=== PATIENT | female | born 1985 | race Caucasian/White ===

== ENCOUNTER 2021-06-28 15:26 | Inpatient (IN) | payer OTHER ==
[~2021-06-28] VITALS: Ht 160 cm; Wt 52.3 kg
[~2021-06-28 15:26] MED LIST: AUGMENTIN 875 M1 TAB PO; BCP TD; CIPRO HC OTIC S10 ML OT; GUAIFEN-PSE 6001 TER PO; IBUPROFEN400 MG PO; LORTAB 5/500 501 TAB PO
[2021-07-18] VITALS (12 sets, daily range): BP systolic 86–127; BP diastolic 51–93; PULSE 66–89; TEMP 97.4–98.8
[2021-07-18] MEDS ORDERED: ONE-A-DAY ESSE1 EACH PO (05:53)
[2021-07-18 06:52] LABS: BASO # 0.1 K/mm3 (0.0-0.2); BASO % 0.7 % (0.0-2.0); EOS # 0.2 K/mm3 (0.0-0.7); EOS % 1.8 % (0-4.0); GRAN # 5.4 K/mm3 (1.4-6.5); GRAN % 65.3 % (42.2-75.2); HEMATOCRIT 42.3 % (37.0-47.0); HEMOGLOBIN 13.4 g/dl (12.5-16.0); LYMPH # 2.1 K/mm3 (1.2-3.4); LYMPH % 25.2 % (20.0-51.0); MEAN CELL VOLUME 95 fl (80.0-100.0); MEAN CORPUSCULAR HEMOGLOBIN 30 pg (27.0-31.0); MEAN CORPUSCULAR HGB CONC 32 g/dl (33.0-37.0); MEAN PLATELET VOLUME 11.3 fl (7.4-10.4); MONO # 0.6 K/mm3 (0.1-0.6); MONO % 6.8 % (1.7-9.3); PLATELET COUNT 209 K/mm3 (130-400); RED BLOOD COUNT 4.46 M/mm3 (4.10-5.30); REDCELL DISTRIBUTION WIDTH-CV 13.6 % (11.5-14.5)
--- NOTE | 2021-07-18 07:00 | NUR ---
PATIENT'S BELONGINGS BROUGHT INTO PACU. REPORT GIVEN TO CARLOS ALBERTO HILL FOR OR.
[2021-07-18 07:17] LABS: ALBUMIN 3.8 gm/dL (3.5-5.0); BILIRUBIN,TOTAL 0.3 mg/dL (0.2-1.2); CALCIUM 9.2 mg/dL (8.4-10.2); CREATININE, serum 0.71 mg/dL (0.57-1.11); POTASSIUM 3.5 mmol/L (3.5-4.5)
--- NOTE | 2021-07-18 11:20 | NUR ---
PATIENT IS ORIENTED BUT DROWSY POST OP. VSS. NO C/O PAIN OR NAUSEA UPON ADMISSION. ABD LAP SITES X6 ARE WELL APPROXIMATED WITH GLUED CLOSURE. ABD IS SLIGHTLY DISTENDED POST OP BUT WITH POSITIVE BOWL SOUNDS. DOBBS TO DD WITH SMALL AMOUNTS OF CLEAR YELLOW URINE NOTED. IV FLUIDS INFUSING INTO LEFT HAND AND RIGHT WRISTS IV'S. HEAD TO TOE ASSESSMENT COMPLETE. ORIENTED TO ROOM. NO VISITOR. CALL LIGHT IN REACH. NO OTHER NEEDS AT THIS TIME. PATIENT RESTING WITH LIGHTS TURNED DOWN.
--- NOTE | 2021-07-18 20:00 | NUR ---
PATIENT IS ALERT AND ORIENTED X4. PATIENT HAS 6 LAP SITES TO ABDOMEN. CDI, OPEN TO AIR. PATIENT IS ON GENERAL DIET AND ERAS PROTOCOL. PATEINT HAS DOBBS WITH CLEAR AND YELLOW OUTPUT. PATIENT GIVEN K PAD TO HELP WITH PAIN. PATIENT DENIES FURTHER NEEDS AT THIS TIME. PATIENT HAS IV TO LEFT FOREARM AND RIGHT AC. CALL LIGHT WITHIN REACH. HEAD TO TOE ASSESSMENT COMPLETE.
--- NOTE | 2021-07-18 22:15 | NUR ---
PATIENT RATING PAIN 8/10. PAIN MEDS GIVEN PER ORDERS. PATIENT STATES THAT KPAD IS NOT HELPING ENOUGH. BLOOD PRESSURE TO BE MONITORED CLOSELY.
[2021-07-19] VITALS (9 sets, daily range): BP systolic 74–94; BP diastolic 49–61; PULSE 67–82; TEMP 98.2–99.5
--- NOTE | 2021-07-19 05:38 | NUR ---
PATIENT HAD BLOOD PRESSURE OF 74/49. DR. HAYES LEFT VOICEMAIL TO NOTIFY. PATIENT STATES SHE NORMALLY HAS LOW BLOOD PRESSURE. FLUIDS GOING AT 125. PATIENT HAS GOOD OUTPUT FROM DOBBS. WILL CONTINUE TO MONITOR.
--- NOTE | 2021-07-19 05:45 | NUR ---
DR HAYES CALLED AGAIN AND IT WENT TO VOICEMAIL. DR JIMENEZ CALLED AND ORDERED A 500CC BOLUS OF NORMAL SALINE.
--- NOTE | 2021-07-19 06:17 | NUR ---
PATIENT SLEPT MOST OF NIGHT. LOW BLOOD PRESSURES, NOTIFIED DOCTOR. WILL REPORT TO DAYSHIFT.
[2021-07-19 07:10] LABS: HEMATOCRIT 35.7 % (37.0-47.0); HEMOGLOBIN 11.2 g/dl (12.5-16.0)
[2021-07-19 07:29] LABS: CALCIUM 8.7 mg/dL (8.4-10.2); CREATININE, serum 0.7 mg/dL (0.57-1.11); POTASSIUM 3.8 mmol/L (3.5-4.5)
--- NOTE | 2021-07-19 08:17 | NUR ---
Pt resting in bed upon entering for assessment. Dr Powers has been in to see patient. New orders wrote. Pt rating pain 04/18, reports it as sore. PRN pain medication given. Bolus infusing at this time as well. Discussed with pt about plan for the day. Discussed getting up in to the chair and having salgado catheter removed. Breakfast arrived, pt denies any other needs.
--- NOTE | 2021-07-19 09:30 | NUR ---
Abdul catheter removed per order. Pt was not thrilled about having to get up in to the chair. Once she was up, she did well. She did ambulate from the far side of the bed to the bathroom and then back to the chair. Once she was sitting up, she stated that she felt better. Pt did tolerate breakfast, although she did not eat much. No needs, call light within reach
--- NOTE | 2021-07-19 09:53 | NUR ---
ANA MARIA met with the patient to discuss discharge plan. The patient lives in [place] with her two children. She states that her children are with family while she is here. She reports independence with ADLs and does not have any DME. The patient does not have a PCP at this time. She states that she would be interested in getting a list of [place] Providers. ANA MARIA provided her with that list. The patient receives her medications from [facility] and she reports no difficulties obtaining her meds. The patient does not have a DPOA-HC, but she was interested in obtaining a form. ANA MARIA provided. The patient is and she states that her , Adelfo (ph#[phone]), lives out of state right now. The patient plans to return home with her children upon discharge. No additional needs at this time.
--- NOTE | 2021-07-19 13:43 | NUR ---
Initial visit; Patient thanked [employer]per for offering God's blessings and keeping her in [employer]'s prayers.
--- NOTE | 2021-07-19 14:30 | NUR ---
Pt tolerating general diet with no complaints of nausea. Pt back resting in bed. She did have an increase in pain, PRN was given. Pt now resting with eyes closed, even non labored breathing. Call light within reach
[2021-07-19 16:25] LABS: HEMATOCRIT 34.9 % (37.0-47.0)
--- NOTE | 2021-07-19 17:58 | NUR ---
Pt was not wanting to get up, informed her that she really need to to help her heal. Pt now up walking in the halls and doing well, just slow. Pt reports that the IV toradol did help with the pain
--- NOTE | 2021-07-20 01:19 | NUR ---
PT SLEEPING IN BED WITH LIGHTS OFF IN ROOM. RESPIRATIONS UNLABORED, CALL LIGHT WITHIN REACH. PT HAD DECLINED TAKING WALK IN HALLWAY LAST NIGHT, STATED THAT EARLIER HAD BEEN ENOUGH. PT EDUCATED ON BENEFITS OF ACTIVITY ET CHEWING GUM. PT CONTINUES TO HAVE SOME BLOATING, REPORTS PASSING GAS ET HAVING BM. BOWEL SOUNDS ARE ACTIVE. REQUESTS CRACKERS TO EAT FOR A SNACK, DENIES NAUSEA. WHILE ADMINISTERING FLUSH TO IV IN LEFT HAND, IV BECAME INFILTRATED. PT STATED THAT THERE WAS SLIGHT PAIN ET VISIBLE MINIMAL EDEMA VISIBLE. IV WAS REMOVED, CATHETER TIP INTACT. IV TORADOL WAS ADMINISTERED IN RIGHT WRIST WITH NO PROBLEMS.
[2021-07-20 03:07] VITALS: BP 96/60; PULSE 70; TEMP 98.4
--- NOTE | 2021-07-20 03:35 | NUR ---
PT IS AWAKE, REQUESTS PAIN MEDICATION, RATES PAIN 7/10. PT IS GIVEN FRESH ICE WATER, DENIES OTHER NEEDS @ THIS TIME. RESPIRATIONS ARE UNLABORED, CALL LIGHT WITHIN REACH.
[2021-07-20 06:52] LABS: HEMOGLOBIN 10.9 g/dl (12.5-16.0); MEAN CELL VOLUME 97 fl (80.0-100.0); MEAN CORPUSCULAR HEMOGLOBIN 31 pg (27.0-31.0); MEAN CORPUSCULAR HGB CONC 32 g/dl (33.0-37.0); MEAN PLATELET VOLUME 11.8 fl (7.4-10.4); PLATELET COUNT 147 K/mm3 (130-400); RED BLOOD COUNT 3.56 M/mm3 (4.10-5.30); REDCELL DISTRIBUTION WIDTH-CV 14.2 % (11.5-14.5)
[2021-07-20 06:56] LABS: HEMATOCRIT 34.4 % (37.0-47.0)
--- NOTE | 2021-07-20 07:29 | NUR ---
REPORT RECIEVED FROM POWER HOUSE ENGINEER. PT RESTING IN BED. NO SIGNS OR SYMPTOMS OF DISTRESS. NO COMPLAINTS OF PAIN OR DYSPNEA. CALL LIGHT WITHIN REACH
[2021-07-20 07:30] VITALS: BP 94/63; PULSE 67; TEMP 98.7
--- NOTE | 2021-07-20 07:46 | NUR ---
Pt laying in bed, this student introduced herself and performed assessment and obtained VS. Pt states she has a sensation of her kidney popping out- without pain. Pt states that she has a headache on the left side 7/10 on numeric pain scale.
[2021-07-20 11:50] VITALS: BP 104/58; PULSE 69; TEMP 98.7
--- NOTE | 2021-07-20 12:17 | NUR ---
Pt walked around unit with AIDE and returned to room. Pt in recliner still with complaint of H/A, this student made pt cup of hot tea with sugar to see if caffeine helps relieve H/A.
--- NOTE | 2021-07-20 13:19 | NUR ---
Pt up and toiletin herself as needed. Voiding fine with no pain or buring sensation. Pt ate 100% of lunch. Drinking some hot tea and reports head ache is all better.
--- NOTE | 2021-07-20 18:45 | NUR ---
PT DISCHARGED. VERBALIZES UNDERSTANDING OF TEACHING. NO PAIN OR DYSPNEA. NO SIGNS OF DISTRESS.
== END 2021-07-20 18:45 | disposition home or self-care (01) | DRG 658 ==
LOC: SURG 07-18 05:26 → INPTSU 07-18 05:26 → SURG 07-18 07:30
PROVIDERS: Urology; ADMIT Urology
PROC: 8E0W4CZ Robotic Assisted Procedure of Trunk Region, Percutaneous Endoscopic Approach (ICD-10-PCS; 2021-07-18)
PROC: 0TB04ZZ Excision of Right Kidney, Percutaneous Endoscopic Approach (ICD-10-PCS; principal; 2021-07-18 07:30)
DX: C64.1 Malignant neoplasm of right kidney, except renal pelvis (principal); I95.9 Hypotension, unspecified
CPT/HCPCS: A4314; A9284; J0690; J1885; J2405; J2550; J3010; J7040; J7120

== ENCOUNTER → 2021-07-17 | Outpatient (CLI) | payer OTHER ==
[~2021-07-17] MED LIST changes: +ONE-A-DAY ESSE1 EACH PO
== END ==
LOC: COL.LAB 08:00
DX: R93.421 Abnormal radiologic findings on diagnostic imaging of right kidney (principal); N28.89 Other specified disorders of kidney and ureter

== ENCOUNTER 2021-09-12 15:45 | Emergency (ER) | payer OTHER | END 2021-09-12 17:44 | disposition left against medical advice (07) | LOC: COL.ER 15:45 | DX: R69 Illness, unspecified (principal) ==